=== PATIENT | female | born 1985 | race Caucasian/White ===

== ENCOUNTER → 2016-02-28 | Day surgery (SDC) | payer OTHER | LOC: RAD 13:47 | PROVIDERS: ATTEND Orthopaedic Surgery | PROC: BP0 Imaging, Non-Axial Upper Bones, Plain Radiography (ICD-10-PCS; principal; 2016-02-28) | DX: M25.521 Pain in right elbow (principal) | CPT/HCPCS: 73222; 73085; 77002; A9576 ==

== ENCOUNTER 2016-04-11 05:45 | Day surgery (SDC) | payer OTHER ==
[2016-03-30 10:06] LABS: APPEARANCE,URINE CLEAR; BILIRUBIN,URINE NEGATIVE (NEGATIVE); GLUCOSE, URINE NEGATIVE (NEGATIVE); KETONES,URINE NEGATIVE (NEGATIVE); LEUKOCYTE ESTERASE,URINE TRACE (NEGATIVE); NITRITE,URINE NEGATIVE (NEGATIVE); PROTEIN,URINE NEGATIVE (NEGATIVE); URINE SPECIFIC GRAVITY 1.005; UROBILINOGEN,URINE NEGATIVE mg/dL (<2.0)
[2016-03-30 10:07] LABS: ABSOLUTE EOSINOPHILS # (AUTO) 0.3 10^3/uL (0.0-0.6); ABSOLUTE LYMPHOCYTES (AUTO) 1.9 10^3/uL (0.5-4.7); ABSOLUTE MONOCYTES (AUTO) 0.9 10^3/uL (0.1-1.4); BASOPHILS % (AUTO) 0.6 % (0-2); EOSINOPHILS % (AUTO) 3.1 % (0-6); HEMOGLOBIN 14.7 g/dL (12.0-15.5); HGB HCT DIFFERENCE 0.1; LYMPHOCYTES % (AUTO) 23.4 % (13-45); MEAN CORPUSCULAR HEMOGLOBIN 28.7 pg (27.0-33.4); MEAN CORPUSCULAR HGB CONC 33.3 g/dL (32.0-36.0); MEAN CORPUSCULAR VOLUME 86 fl (80-97); MONOCYTES % (AUTO) 11.5 % (3-13); RED CELL DISTRIBUTION WIDTH 12.8 % (11.5-14.0); SEGMENTED NEUTROPHILS % (AUTO) 61.4 % (42-78); WHITE BLOOD COUNT 8.1 10^3/uL (4.0-10.5)
[2016-03-30 10:28] LABS: ANION GAP 11 (5-19); BLOOD UREA NITROGEN 11 mg/dL (7-20); CALCIUM 10.2 mg/dL (8.4-10.2); CARBON DIOXIDE 30 mmol/L (22-30); CHLORIDE 101 mmol/L (98-107); CREATININE RESULT 0.66 mg/dL (0.52-1.25); GLUCOSE 83 mg/dL (75-110); POTASSIUM 4.9 mmol/L (3.6-5.0); SODIUM 142.1 mmol/L (137-145)
--- NOTE | 2016-03-30 12:51 | EKG REPORT ---
SEVERITY:- NORMAL ECG - SINUS RHYTHM : Confirmed by: Darryl Larkin 30-Mar-2016 12:51:12
[~2016-04-11 05:45] MED LIST: CEFAZOLIN 2 GM/D5W RTU 2 GM/50 ML RTUPB IV PRN; LACTATED RINGERS 1000 ML IV PRN; LIDOCAINE 0.5% INJ-PF (5 MG/ML) 50 ML SDV SUBCUT PRN
[2016-04-11] MEDS ORDERED: BUPIVACAINE HCL 0.5 % INJ/PF 30 ML SDV ONE (06:49)
[2016-04-11] MEDS ORDERED: FENTANYL CITRATE INJ/PF 250 MCG/5 ML AMPULE ONE ×2 (07:31→07:32)
[2016-04-11] MEDS ORDERED: PROPOFOL INJ 200 MG/20 ML VIAL IV ONE (07:32)
[2016-04-11] MEDS ORDERED: MIDAZOLAM 2 MG/2 ML INJ ONE (07:32)
[2016-04-11] MEDS ORDERED: ACETAMINOPHEN 100 ML IV ONE (07:33)
[2016-04-11] MEDS ORDERED: MORPHINE SULFATE 10 MG/ML INJ ONE (07:33)
[2016-04-11] MEDS ORDERED: OXYCODONE-ACETAMINOPHEN 5-325 MG TABLET PO PRN ×3 (07:40→10:01)
[2016-04-11] MEDS ORDERED: MORPHINE SULFATE 10 MG/ML INJ IV PRN ×2 (07:40→10:01)
[2016-04-11] MEDS ORDERED: FENTANYL CITRATE INJ/PF 100 MCG/2 ML AMPUL IV PRN ×3 (07:40)
[2016-04-11] MEDS ORDERED: DIPHENHYDRAMINE HCL 50 MG/ML VIAL IV PRN (07:40)
[2016-04-11] MEDS ORDERED: MEPERIDINE HCL/PF INJ 25 MG/1 ML DISP.SYRIN IV PRN (07:40)
[2016-04-11] MEDS ORDERED: PROMETHAZINE HCL INJ 25 MG/1 ML VIAL IV PRN ×2 (07:40)
[2016-04-11] MEDS ORDERED: ONDANSETRON HCL INJ/PF 4 MG/2 ML SDV IV PRN (10:01)
[2016-04-11] MEDS ORDERED: KETOROLAC TROMETHAMINE INJ/PF 30 MG/1 ML SDV IV PRN (10:01)
--- NOTE | 2016-04-11 10:04 | PDOC DISCHARGE SUMMARY ---
Discharge Summary (SDC) - Discharge Final Diagnosis: Right Elbow Arthroscopy w/ Cubital Tunnel Release Ulnar Nerve Transposition Date of Surgery: 04/11/16 Discharge Date: 04/11/16 Condition: Good Treatment or Instructions: Schedule Follow Up w/ Dr. Freddy Son @ [facility] to be seen in 10-14 days or as scheduled [place]: [place]: [place]: Keep splint clean/dry/intact removed day of therapy. Ice and elevate May begin finger range of motion attempting to make full fist. Stool softener of choice when on pain medication. Begin occupational therapy in 5-7 days Prescriptions: Oxycodone HCl/Acetaminophen [Percocet 7.5-325 Mg Tablet] 1 each PO Q6 PRN #50 tablet PRN Reason: Discharge Diet: As Tolerated Discharge Activity: No Lifting Over 10 Pounds, No Lifting/Push/Pulling Report the Following to Your Physician Immediately: Increase in Pain, Fever over 101 Degrees, Unusual Bleeding, Redness, Swelling, Increased Soreness
--- NOTE | 2016-04-11 10:22 | Operative Report ---
Operative Report DATE OF SURGERY: 04/11/16 PREOPERATIVE DIAGNOSIS: Right Elbow Contracture POSTOPERATIVE DIAGNOSIS: Same OPERATION: Right Elbow Arthroscopy w/ Capsular Release. Open Cubital Tunnel Release w/ Ulnar Nerve Transposition. Release Posterior Band MCL SURGEON: TRAVIS ARIAS ANESTHESIA: GA COMPLICATIONS: None ESTIMATED BLOOD LOSS: Minimal PROCEDURE: Indication for Above Procedure: 30-year-old female who sustained a capitellar fracture. She was seen in outside facility and treated conservatively and she subsequently developed a contracture of her elbow with inability to obtain full flexion or extension. At that point we discussed treatment options including operative versus nonoperative intervention and she attempted extensive occupational therapy including a ANGELICA brace which did provide some improvement but not within the confines of functional elbow range of motion. Thus we discussed surgical treatment wrist and benefits were explained the patient patient verbalized understanding consented for the procedure. Procedure In Detail: Patient was seen and evaluated in the preoperative holding area. The RIGHT upper extremity was initialized and marked. Patient received 2g of Ancef IV for bacterial prophylaxis. Patient was taken back to the operative room where transferred to the operative table and placed under general anesthesia. Once they were adequately anesthetized a nonsterile tourniquet was placed on the upper extremity. Patient was placed in the lateral decubitus position the bilateral lower extremities were carefully padded including the left nonoperative extremity patient was placed in the western arm valencia. A surgical team debriefing was performed ensuring all instrumentation was available, the surgical procedure was discussed with possible concerns reviewed. The upper extremity was prepped with ChloraPrep and draped in a sterile fashion. A timeout was done identifying correct patient, extremity and procedure everyone in attention agreed to this and verbalized no concerns. The extremity was exsanguinated the tourniquet was inflated to 250 mmHg. First 25 mL of fluid were insufflated into the soft spot between the radial head , capitellum and olecranon. A medial portal was established 2 cm proximal and 1 cm anterior to the medial epicondyle and medial intermuscular septum respectively. Trocar was introduced into the elbow joint. I then triangulated and established a lateral portal. Patient did have synovitis along the radiocapitellar joint which was resected with with a small shaver without suction. The previous capitellar fracture was identified but no significant osteochondral lesion or defect was appreciated. There is no evidence of mechanical block or disruption to indicate the cause of motion loss. I then used a blunt trocar to elevate the capsule off of the anterior aspect of the humerus a area was resected and was then able to fully extend the patient. Exploration of the anterior compartment of the elbow demonstrate no evidence of chondral defect of the trabecular or coronoid. No evidence of coronoid impingement. At this point because I achieved full extension I turned my attention to the cubital tunnel release and posterior capsular release. Longitudinal skin incision was made over the cubital tunnel. Blunt dissection was performed to the soft tissues. Any peripheral vasculature was quite a bipolar cautery. A branch of the medial antebrachial cutaneous nerve was identified and retracted. The nerve was identified proximally as it transitioned from anterior to posterior past the intermuscular septum adjacent to the triceps. A vessel loop was then placed around the ulnar nerve. A section of the medial intermuscular septum was then resected. I continued to neurolyse the nerve distally as it entered the cubital tunnel releasing Cat' s fascia. The nerve and entered the 2 muscle bellies of the FCU and the fascia was released. Any remaining constriction bands of the ulnar nerve was released down to the first motor branch. I was then able to release the soft tissue around the ulnar nerve maintaining its proximal vasculature. The nerve was then easily transposed anteriorly without evidence of impingement or compression proximally or distally. I then proceeded with release of the posterior band of the medial collateral ligament and elevated the triceps off the posterior humerus. Once this was complete I was able to easily passively flexed the patient's elbow to 150. There is no crepitation with range of motion. I then transposed the ulnar nerve subcutaneously anteriorly and secured it with 2-0 Vicryl suture while my assistant cross country coach placed a [place] between the subcutaneous pocket and sutured to avoid unnecessary compression. I then ranged the elbow the was no evidence of impingement of the ulnar nerve proximally or distally. The wound was then irrigated with normal saline. Peripheral vascular was coagulated with bipolar cautery. Subcutaneous tissues were closed with interrupted 3-0 Monocryl suture. Skin was closed with interrupted horizontal mattress 3-0 nylon suture. 20 mL of 0.5% Marcaine was injected for postoperative pain control. Portal sites were closed with interrupted 3-0 nylon suture. Wound was dressed with Xeroform 4 x 4's age was placed in a splint at 90 of flexion. Tourniquet was deflated. Sponge counts, instrument counts, needle counts counts were correct. Patient was then awoken from anesthesia. Transferred from the operating room table to the operating room stretcher. There was no intraoperative complications patient tolerated procedure well stable to PACU. Postoperative plan: Patient will begin occupational therapy within 3-5 days focusing on elbow flexion and extension. She will follow-up in the office with me in 2 weeks for wound check.
[2016-04-11 11:59] VITALS: BP 100/59
[2016-04-11] MEDS ORDERED: ROCURONIUM BROMIDE INJ 50 MG/5 ML VIAL IV ONE (12:19)
[2016-04-11] MEDS ORDERED: LIDOCAINE 2% INJ-PF (20 MG/ML) 10 ML AMPUL ONE (12:19)
[2016-04-11] MEDS ORDERED: NEOSTIGMINE METHYLSULFATE 10 MG/10 ML VIAL ONE (12:19)
[2016-04-11] MEDS ORDERED: METOCLOPRAMIDE HCL INJ/PF 10 MG/2 ML SDV ONE (12:19)
[2016-04-11] MEDS ORDERED: GLYCOPYRROLATE INJ 0.4 MG/2 ML VIAL ONE (12:19)
[2016-04-11] MEDS ORDERED: SUCCINYLCHOLINE CHLORIDE INJ 200 MG/10 ML VIAL ONE (12:19)
[2016-04-11] MEDS ORDERED: ONDANSETRON HCL INJ/PF 4 MG/2 ML SDV ONE (12:19)
== END 2016-04-11 12:10 | disposition home or self-care (01) ==
LOC: OROUT 05:45
PROVIDERS: ATTEND Orthopaedic Surgery
PROC: 0MN Bursae and Ligaments, Release (ICD-10-PCS; 2016-04-11)
PROC: 01N40ZZ Release Ulnar Nerve, Open Approach (ICD-10-PCS; principal; 2016-04-11 07:45)
DX: G56.21 Lesion of ulnar nerve, right upper limb (principal); M24.521 Contracture, right elbow; M65.831 Other synovitis and tenosynovitis, right forearm; M25.521 Pain in right elbow
CPT/HCPCS: 93005; 36415; 85025; 81025; 80048; 81001; 71020; 93010; 64718; 24999; 29999; J2250; J3490 ×2; J3010; J2765; J2270; J2550; J0330; J2405; J2704; J0690; J0131; 1740